=== PATIENT | male | born 1995 | race Caucasian/White ===

== ENCOUNTER 2022-05-21 09:35 | Emergency (ER) | payer OTHER ==
[~2022-05-21] VITALS: Ht 167.6 cm; Wt 79.4 kg
--- NOTE | 2022-05-21 09:36 | NUR ---
PT TO ER BED 7 WITH [facility]/PD AT BEDSIDE
[2022-05-21 09:40] VITALS: BP 135/90
[2022-05-21] MEDS ORDERED: ACETAMINOPHEN EXTRA STRENGTH 500 MG TAB PO ONE (09:40)
--- NOTE | 2022-05-21 09:44 | NUR ---
26/M [facility] AND [place] [employer] FOR OK TO BOOK AFTER RESISTANCE TO ARREST. PT C/O BODY ACHE. PT REPORTS HX METH USE. PT IS VERBALLY AGGRESSIVE AND AGITATED. AAO4, AMBULATORY. ON CUFF, PD AT BEDSIDE PMH: BIPOLAR/SCHIZO/ASTHMA
--- NOTE | 2022-05-21 09:55 | NUR ---
PATIENT [facility] [employer]. PATIENT EXAMINED BY DR. BA. PATIENT MEDICALLY CLEARED AND RELEASED IN CUSTODY IN STABLE CONDITION. ORIGINAL PRE-BOOK FORM GIVEN TO OFFICER MERARY 411.
== END 2022-05-21 09:55 ==
LOC: MED 09:35
DX: Z00.00 Encounter for general adult medical examination without abnormal findings (principal); F15.90 Other stimulant use, unspecified, uncomplicated; Z91.030 Bee allergy status
CPT/HCPCS: 99283